=== PATIENT | female | born 1985 | race Caucasian/White ===

== ENCOUNTER 2020-05-13 03:47 | Inpatient (IN) | payer OTHER ==
[~2020-05-13] VITALS: Ht 165.1 cm; Wt 61.2 kg
[2020-05-13] VITALS (12 sets, daily range): BP systolic 85–118; BP diastolic 53–90
[2020-05-13] MEDS ORDERED: FENTANYL 2500MCG+NS 250ML 250 ML IV ONE ×2 (03:55→09:47)
[2020-05-13 04:28] LABS: BASOPHILS % (AUTO) 0.6 % (0.0-5.0); EOSINOPHILS % (AUTO) 0.2 % (0.0-8.0); HEMATOCRIT 36.7 % (36-48); LYMPHOCYTES % (AUTO) 23.6 % (21.0-51.0); MEAN CORPUSCULAR HEMOGLOBIN 29.1 pg (27.0-33.0); MEAN CORPUSCULAR HGB CONC 32.7 g/dL (32.0-36.0); MEAN CORPUSCULAR VOLUME 88.9 fL (79-99); MONOCYTES % (AUTO) 7.3 % (3.0-13.0); NEUTROPHILS % (AUTO) 68.1 % (40.0-77.0); PLATELET COUNT (AUTO) 284 K/uL (130-400); RED BLOOD CELL COUNT(AUTO) 4.13 MIL/uL (4.00-5.50); RED CELL DISTRIBUTION WIDTH 13.6 % (11.0-15.5); WHITE BLOOD COUNT (AUTO) 8.3 K/uL (4.8-10.8)
[2020-05-13] MEDS ORDERED: PROPOFOL 1000 MG/100 ML 100 ML IV ONE (04:40)
[2020-05-13 04:41] LABS: APPEARANCE,URINE Clear (CLEAR); BILIRUBIN,URINE Negative (NEGATIVE); COLOR,URINE Yellow (YELLOW); GLUCOSE, URINE (UA) Negative (NEGATIVE); KETONES,URINE Negative (NEGATIVE); LEUKOCYTE ESTERASE ,URINE Negative (NEGATIVE); NITRATE,URINE Negative (NEGATIVE); OCCULT BLOOD,URINE Negative (NEGATIVE); PROTEIN,URINE Negative (NEGATIVE)
[2020-05-13 04:43] LABS: HCG,QUAL RESULT NEGATIVE (NEGATIVE)
[2020-05-13 04:49] LABS: AMPHET/METH SCREEN,URINE POSITIVE (NEGATIVE); BARBITURATE SCREEN, URINE NEGATIVE (NEGATIVE); BENZODIAZEPINES SCREEN,URINE NEGATIVE (NEGATIVE); CANNABINOID SCREEN,URINE POSITIVE (NEGATIVE); COCAINE SCREEN,URINE POSITIVE (NEGATIVE); OPIATE SCREEN,URINE NEGATIVE (NEGATIVE); PHENCYCLIDINE SCREEN,URINE NEGATIVE (NEGATIVE)
[2020-05-13 04:55] LABS: ALBUMIN 4.1 g/dL (3.5-5.0); BILIRUBIN,TOTAL 0.4 mg/dL (0.2-1.0); CREATININE 0.7 mg/dL (0.5-1.5); POTASSIUM 3.9 mmol/L (3.5-5.1); TOTAL PROTEIN, SERUM 7.3 g/dL (6.0-8.3)
[2020-05-13 04:59] LABS: INR 0.94 (0.85-1.15); PARTIAL THROMBOPLASTIN TIME 25.4 SEC (26.3-35.5); PROTHROMBIN TIME 10.2 SEC (9.6-11.6)
[2020-05-13] MEDS ORDERED: ACETAMINOPHEN 325 MG TAB PO PRN (05:45)
[2020-05-13] MEDS ORDERED: PROPOFOL 1000 MG/100 ML 100 ML IV PRN (05:45)
[2020-05-13] MEDS ORDERED: CLINDAMYCIN 600 MG/D5% WATER 50 ML IV ONE (05:49)
[2020-05-13] MEDS ORDERED: SODIUM CHLORIDE 0.9% 50 ML IV ONE (06:09)
[2020-05-13] MEDS ORDERED: MIDAZOLAM HCL 5 MG/ML 2ML VIAL IV ONE (06:09)
[2020-05-13 07:58] LABS: ABG HCO3 22.8 mmol/L (21.0-28.0); ABG OXYGEN SATURATION 99.7 % (95.0-99.0); ABG PCO2 43 mmHg (32-45)
[2020-05-13 08:16] LABS: ALCOHOL, BLOOD < 3 mg/dL (0-10)
[2020-05-13 08:20] LABS: ACETAMINOPHEN < 1 mcg/mL (10-30); SALICYLATE < 2.8 mg/dL (2.8-20.0)
[2020-05-13] MEDS ORDERED: ENOXAPARIN SODIUM 40 MG/0.4 ML SYRINGE SQ ONE (09:59)
[2020-05-13] MEDS ORDERED: FAMOTIDINE/PF 20 MG/2 ML VIAL IV ONE (09:59)
--- NOTE | 2020-05-13 12:45 | NUR ---
PATIENT ARRIVED FROM ED WITH NURSE AND RT. PATIENT INTUBATED WITH7.5ETT AT 24CM LIP. ARRIVED ON FENTANYL @100MCG/HR, VERSED @6MG/HR AND PROPOFOL @ 20MCG/KG/MIN. PATIENT AWAKE AND ALERT, FOLLOWING COMMANDS. PATIENT EDUCATED ON UNIT AND PLAN OF CARE. NODS HEAD YES/NO. PATIENT MADE MULTIPLE ATTEMPTS TO REACH ETT AND HER FACE, MITTENS APPLIED FOR SAFETY. JEFFRIES CATHETER IN PLACE, OGT IN PLACE. ASSESSED PER CHARTING. LOG DATA TECHNICIAN APPLIED AND ALARMS AUDIBLE. ONLY BELONGINGS WITH PATIENT ARE CLOTHES IN BELONGING BAG AT BEDSIDE. BED LOCKED AND LOW.
[2020-05-13] MEDS: SODIUM CHLORIDE 0.9% 1000ML 1,000 ML IV SCH ×2 (13:37→20:42)
[2020-05-13] MEDS: CLINDAMYCIN 600 MG/D5% WATER 50 ML IV SCH ×2 (13:37→21:34)
[2020-05-13] MEDS ORDERED: MIDAZOLAM 50MG-0.9% NS 50ML 50 ML BAG IV SCH (13:45)
[2020-05-13] MEDS ORDERED: FENTANYL CITRATE PF 0.05 MG/ML 1,000 MCG in SODIUM CHLORIDE 0.9% 100 ML IVPB SCH (13:45)
[2020-05-13] MEDS ORDERED: FENTANYL 2500MCG+NS 250ML 250 ML IV SCH (14:00)
[2020-05-13] MEDS ORDERED: MIDAZOLAM 100MG-0.9% NS 100ML 100 ML IV SCH (14:00)
--- NOTE | 2020-05-13 14:00 | NUR ---
PATIENT RESTING ON SEDATION. WILL START TITRATING DOWN TOLERATED.
[2020-05-13] MEDS ORDERED: DEXMEDETOMIDINE HCL 400 MCG in SODIUM CHLORIDE 0.9% 100 ML IV SCH (15:00)
--- NOTE | 2020-05-13 16:59 | NUR ---
PATIENT ALERT AND ABLE TO WRITE NOTES/QUESTIONS. GAVE MOTHER'S PHONE NUMBER. HEATHER [phone]. PATIENT WROTE DOWN TO TELL MOTHER SHE IS HERE AND IS OKAY. ASKED IF PATIENT WANTED MOTHER TOLD WHY SHE IS HERE AND PATIENT SHOOK HER HEAD NO. CALLED PATIENT'S MOTHER AND INFORMED HER THAT THE PATIENT IS HERE, STABLE IN ICU AND SHOULD BE ABLE TO TAKE CALLS TOMORROW. INFORMED PATIENT'S MOTHER THAT IF ANYTHING CHANGES, WE WILL CALL HER. PATIENT'S MOTHER VOICED WANTING TO KNOW WHAT HAPPENED BUT UNDERSTANDS PRIVACY LAWS.
--- NOTE | 2020-05-13 18:11 | NUR ---
RUSTY NOTE- CM REVIEWED RN NOTES RE: NEXT OF KIN INFO . PATIENT IS NOT WANTING FAMILY TO KNOW ANYTHING ABOUT HER HOSPITALIZATION DETAILS.. MAIL CLERK BILLS WILL NOT BE CONTACTING MOTHER FOR INITIAL ASSESSMENT QUESTIONS TODAY . WILL DEFER IA TO MARITZA IN AM.. Addendum: 05/13/20 at 1814 by JIMBO SHAW RN CM Amended: Links added.
--- NOTE | 2020-05-13 19:30 | NUR ---
ASSESSMENT PT RESTING IN BED, SITTING UP. ETT 7.5, AC/12/40%/400+5, COOPERATIVE, FOLLOWS COMMANDS. OGT CLAMPED. JEFFRIES CATHETER PATENT AND INTACT TO BSD. ASSESSMENT COMPLETED, SEE FLOW SHEET.
[2020-05-13] MEDS ORDERED: FAMOTIDINE/PF 20 MG/2 ML VIAL IV SCH (21:00)
--- NOTE | 2020-05-13 21:20 | NUR ---
UP-DATE PT AGITATED. PULLED OUT ETT, OGT, IV ATR 2114. PLACED ON AEROSOL MASK. RETURN CALL PENDING.
[2020-05-14] VITALS: BP 139/90
[2020-05-14 01:00] VITALS: BP 122/73
[2020-05-14 02:00] VITALS: BP 115/78
--- NOTE | 2020-05-14 02:00 | NUR ---
UP-DATE MORNING CARE PROVIDED. PT REQUESTING JEFFRIES CATHETER TO BE REMOVED STATED " I DON'T LIKE OR WANT IT. TAKE IT OUT" JEFFRIES CATHETER REMOVED PER PT REQUEST. PT STATED THE RAC IV WAS HURTING HER AND REQUESTED THE IV TO BE REMOVED. RAC IV REMOVED.
[2020-05-14 03:00] VITALS: BP 120/75
[2020-05-14 03:45] VITALS: BP 135/82
--- NOTE | 2020-05-14 03:45 | NUR ---
UP-DATE LAB AT BEDSIDE, PT AGITATED, UNABLE TO OBTAIN SPECIMEN. PT BECAME ANGRY, STARTED YELLING "I'M LEAVING". AMA PAPERS OBTAINED, PT REFUSED TO SIGN THEM. PT PULLED OUT IV'S X2, BLEEDING. THE BEDSIDE RN TRIED TO APPLY PRESSURE, PT BECAME MORE AGITATED. PT STATED SHE WOULD WALK HOME. SECURITY CALLED AND ASKED TO ESCORT PT. EMILY MOTEL FOOD SERVICE SUPERVISOR MADE AWARE
--- NOTE | 2020-05-14 03:50 | NUR ---
LEFT PT LEFT FLOOR, AMBULATING WITH SECURITY. AMA, REFUSED TO SIGN PAPERS.
[2020-05-14] MEDS ORDERED: ENOXAPARIN SODIUM 40 MG/0.4 ML SYRINGE SQ SCH (09:00)
== END 2020-05-14 03:50 | disposition left against medical advice (07) | DRG 917 ==
LOC: EDH 03:47 → EDHIP 03:48 → EDBD 03:48 → DAHIP 11:13
PROVIDERS: ADMIT Internal Medicine; ATTEND Internal Medicine
PROC: 0BH17EZ Insertion of Endotracheal Airway into Trachea, Via Natural or Artificial Opening (ICD-10-PCS; principal; 2020-05-13)
PROC: 5A1935Z Respiratory Ventilation, Less than 24 Consecutive Hours (ICD-10-PCS; 2020-05-13)
DX: T40.7X1A Poisoning by cannabis (derivatives), accidental (unintentional), initial encounter (principal); J96.01 Acute respiratory failure with hypoxia; M62.82 Rhabdomyolysis; T40.5X1A Poisoning by cocaine, accidental (unintentional), initial encounter; Z53.29 Procedure and treatment not carried out because of patient's decision for other reasons; F19.10 Other psychoactive substance abuse, uncomplicated; R68.0 Hypothermia, not associated with low environmental temperature; Y92.89 Other specified places as the place of occurrence of the external cause
CPT/HCPCS: 31500; 36415; 36600; 70450; 71045; 80053; 80305; 81003; 81025; 82550; 82803; 84484; 85025; 85610; 85730; 93005; 94002; 99291; G0378; G0481; J1650; J2250; J2704; J3010; J3490; J7030